=== PATIENT | male | born 1995 | race Caucasian/White ===

== ENCOUNTER → 2017-01-21 | Day surgery (SDC) | payer OTHER ==
[~2017-01-21] VITALS: Ht 177.8 cm; Wt 64.9 kg
[~2017-01-21] MED LIST: Atropine 0.4 mg/mL Inj IVPUSH PRN; Bupivacaine-MPF 0.5% 30 mL Inj INFILTRATE ONE; CEPH500T PO; CeFAZolin Inj 2 GM in IV Premix 1 EACH IV ONE; EPHEDrine Sulfate 50 mg/mL Inj IVPUSH PRN; Gentamicin 40 mg/mL 2 mL Inj IRRIGATION ONE; HYDROcodone-APAP 5-325 mg Tablet PO ONE; HYDROmorphone 1 mg/mL Inj IVPUSH PRN; Labetalol 5 mg/mL 20 mL Inj IV PRN; Lactated Ringer's 1,000 ML IV SCH; Lactated Ringer's 500 ML IV PRN; Ondansetron 2 mg/mL 2 mL Inj IVPUSH PRN; Phenylephrine 10,000 mCg/mL Inj IVPUSH PRN; Propofol 10,000 mCg/mL 20 mL Inj ONE; SULF1TAB35 PO; fentaNYL-PF 50 mCg/mL 2 mL Inj IVPUSH PRN; fentaNYL-PF 50 mCg/mL 2 mL Inj ONE
[2017-01-21 06:05] VITALS: BP 137/79; PULSE 54; RESP 16; O2SAT 99
[2017-01-21] MEDS: Lactated Ringer's 1,000 ML IV SCH ×2 (06:16→07:21)
--- NOTE | 2017-01-21 07:54 | PCM.HPANE ---
Patient Data Surgeon Admitting Provider: Attending Provider:Cholo Ivan MD Primary Care Physician:Aida Stephenson MD Other Provider:Callie Murphyingham Anesthesia Reason for Visit Right Index Finger Foreign Body Ht/WT & BMI Height (Feet): 5 Height (Inches): 10 Weight (Kilograms): 64.9 Body Mass Index 20.00 Allergies Coded Allergies: No Known Allergies (Unverified , 01/21/17) Past Anesthesia History Anesthesia History: Denies:: Abnormal Airway, Anesthesia Reactions (never has had surgery), Difficult Intubation, Fam Anesthesia Reaction, Fam Malignant Hypertherm, Malignant Hyperthermia Diabetes History Hx Diabetes?: No MRSA MRSA: No Medications Home Meds Incl Beta Xander: No Reported Medications Cephalexin 500 Mg [id number] Mg PO BID #40 TABLET Ref 0 01/18/17 Sulfamethoxazole/Trimeth 800-160 mg (Bactrim DS 800-160 mg)1 Each Tablet1 Tablet PO BID Ref 0 01/18/17 History History of ENT Problems?: No HEENT History: Denies:: Abnormal Airway Difficult Intubation Dysphagia Hearing Problem Sinus Problem TMJ Denture Type: None Teeth Condition: Within Normal Limits Hx of Heart Problems?: No Cardiovascular History: Denies:: Congestive Heart Failure Hypertension Hx of Respiratory Problem?: No Respiratory History: Denies:: Tuberculosis Use of C-PAP Machine Hx Neurologic Problems?: Yes Neurological History: Positive for:: Seizures (knocked out while playing basketball at age 13, no residual) Hx of GI Problems?: No Hx of Problems?: No Genitourinary History: Denies:: HX of Hemodialysis HX of Peritoneal Dialysis: No Male Hx: Denies:: Prostate Problems Scrotal Mass Testicular Surgery Skin History: Positive for:: History Skin Disorders? Denies:: Pressure Ulcers Hx Musculoskeletal Problems?: No Hx of Psycho/Social Problems?: No Hx Surgeries?: No Other History: Denies:: Cancer Hospitalization Thyroid Disease History Blood Transfusions: Positive for:: Accept Blood Products? Denies:: Blood Transfusions Hx Diabetes: No Hx Alcohol Use: NoHx Substance Use: Yes (smokes ) Smoking Status: Never Smoker Stop/Bang S-Snoring: Do You Snore Loudly: No T-Tired: feel tired, fatigued: No O-Obsered: Observed not breath: No P-Blood Pressure: treated: No B- Body Mass Index > 35 kg/m2: No A- Age over 50: No N- Neck Large Circumference: No G- Gender Male: Yes XIMENA Total Score: 1 Risk Assessment Category Category 1A: Patient has history of documented sleep apnea, and HAS NOT received any narcotic, sedative or anesthesia administration during this stay. Category 1B: Patient has history of documented sleep apnea, and HAS received any narcotic , sedative or anesthesia administration during this stay Category 2: Patient has SUSPECTED Obstructive Sleep Apnea, and HAS received any narcotic , sedative or anesthesia administration during this stay. Category 3: Patient has SUSPECTED Obstructive Sleep Apnea and HAS NOT received narcotic, sedative or anesthesia administration during this stay. Category 4: Outpatient in Procedural Areas with known sleep apnea or who screen positive for High Risk via the STOP/BANG questionnaire. Exam Exam Vital Signs Vital Signs Date Time Temp Pulse Resp B/P Pulse Ox O2 Delivery O2 Flow Rate FiO2 01/21/17 06:05 36.3 54 16 137/79 99 Room Air General Appearance: Alert, Oriented X3, Cooperative, No Acute Distress HEENT/AIRWAY: MP 2, Neck Movement Lungs: Clear to Auscultation, Normal Air Movement Heart: Exam Unremarkable, Regular Rate/Rhythm, No Murmurs/Rubs/Gallops Meds/Labs/Diagnostics Admission Meds Current Medications Lactated Ringer's (Lr) 1,000 ml @ 120 mls/hr [id number] IV Last administered on t 06:16; Start 01/21/17 at 05:00; Stop 01/21/17 at 13:19 Plan Impression Patient chart reviewed, patient interviewed and anesthestic plan with risks, benefits, and alternatives discussed, and informed consent obtained. NPO per Anesth. Guidelines: Yes ASA Physical Status: ASA2 Mod Systemic Disease Anesthetic Plan: GA, MAC Bene/Risks/Altern/Consents: Yes HP Complete Prior to Induction: Yes Mack Simpson MD Jan 21, 2017 07:00
[2017-01-21 08:08] VITALS: BP 103/50; PULSE 46; RESP 14; O2SAT 98
[2017-01-21 08:14] VITALS: BP 100/49; PULSE 46; RESP 12; O2SAT 98
--- NOTE | 2017-01-21 08:22 | PCM.ANEP1 ---
Post Anesthesia PACU Phase 1 Assessment Vital Signs Vital Signs Date Time Temp Pulse Resp B/P Pulse Ox O2 Delivery O2 Flow Rate FiO2 01/21/17 08:14 46 12 100/49 98 Simple Mask 10 01/21/17 08:08 36.6 46 14 103/50 98 Simple Mask 10 01/21/17 06:05 36.3 54 16 137/79 99 Room Air Anesthetic Administered: GA, MAC Level of Alertness: Awake, talking MURPHY's with Equal Strength: Yes Pain: No Nausea or Vomiting: No CV Function & Hydration Stable: Yes Airway Device: n/a Oxygen Delivery: Simple Mask Lungs: Clear to Auscultation, Normal Air Movement Dermatome Level: Full Sensation PACU Phase 2 Assessment Complications: No Follow up Care: N/A Patient Instructions Provided: N/A Mack Simpson MD Jan 21, 2017 08:22
--- NOTE | 2017-01-21 18:22 | OP ---
[address] [address] OPERATIVE REPORT PATIENT: ZEKE JAIN : 1995 MR#: [id number] ADMIT: 01/21/2017 JOB ID: [id number] DATE OF SURGERY: 01/21/2017 PREOPERATIVE DIAGNOSIS(ES): Right index finger foreign body, radial aspect, proximal interphalangeal (PIP) joint subcutaneous tissues. ICD 10 code S60.450A. POSTOPERATIVE DIAGNOSIS(ES): Right index finger foreign body, radial aspect, proximal interphalangeal (PIP) joint subcutaneous tissues. ICD 10 code S60.450A. PROCEDURE: Removal of superficial foreign body right index finger. CPT code 42143. SURGEON: Cholo Ivan MD SALES REPRESENTATIVE [employer]: None. ANESTHESIA: IV sedation with supplemental metacarpal nerve block by surgeon. Tourniquet utilized. ESTIMATED BLOOD LOSS: Less than one mL. DRAINS: None. COMPLICATIONS: None. SPECIMEN: Small metal foreign body sent to pathology. INDICATION: This 21-year-old male was using a metal object at work and struck another metal object and a piece of metal about 2 mm x 2 mm embedded in the radial aspect of his right index finger in the mid lateral line in the subcutaneous tissues. PROCEDURE: After appropriate time-out was called I placed a metacarpal nerve block with 0.5% plain Marcaine in his right index finger. The right arm was prepped and draped in sterile fashion and a tourniquet was utilized. The arm was elevated, exsanguinated, and the tourniquet inflated to 250 mmHg. A small incision was fashioned just over the foreign body entry point radial aspect of the index finger, mid lateral portion subcutaneous tissues of the PIP joint level. The foreign body was just in the subcutaneous tissues. It was easily identified and removed. The wound was irrigated with antibiotic solution. Skin was reapproximated with a single horizontal mattress suture of 4-0 nylon. Tourniquet was released. No hemostasis required. Xeroform dry sterile bulky finger dressing was applied. The patient was taken to the recovery room in stable condition. Sponge and needle count correct. Specimen was sent to pathology. PLAN: The patient will have his suture removed in two weeks. He needs to keep the wound clean and dry. Should he need a dressing change, please contact the office. Otherwise, we will see him back in two weeks. He has been given a note to return to light duty. CC: [facility]
== END | disposition home or self-care (01) ==
LOC: SAS 05:33
PROVIDERS: ATTEND Orthopaedic Surgery
DX: S60.450A Superficial foreign body of right index finger, initial encounter (principal); R56.9 Unspecified convulsions; W45.8XXA Other foreign body or object entering through skin, initial encounter; Y92.89 Other specified places as the place of occurrence of the external cause; Y99.9 Unspecified external cause status; Y93.9 Activity, unspecified